=== PATIENT | female | born 1960 | race Caucasian/White ===

== ENCOUNTER → 2018-02-04 12:20 | Outpatient (CLI) | payer OTHER, SELFPAY ==
--- NOTE | 2018-02-04 | DI.US.S_ITS ---
PROCEDURE: US ABD AORTA ANEURYSM SCREEN INDICATIONS: SCREENING HYPERTENSION TECHNIQUE: Real time scanning was performed of the aorta and iliac arteries, with image documentation. COMPARISON: [facility], CT, ABDOMEN/PELVIS WITH CONTRAST, 03/10/2011, 15:11. [facility], US, ABDOMEN COMPLETE, 11/09/2007, 7:27. [facility], US, US ARTERIAL DUPLEX LE RT, 02/04/2018, 13:16. FINDINGS: Aorta: Proximal aortic diameter measures 2.3 cm. Mid-aorta measures 1.4 cm. Distal aortic diameter is 1.1 cm. Iliac arteries: Right common iliac artery measures 0.9 cm. Left common iliac artery measures 0.8 cm. IMPRESSION: No abdominal aortic aneurysm is seen. Dictated by: Eliseo España M.D. on 02/04/2018 at 14:54 Approved by: Eliseo España M.D. on 02/04/2018 at 14:55
--- NOTE | 2018-02-04 | DI.US.S_ITS ---
PROCEDURE: US ARTERIAL DUPLEX LE RT INDICATIONS: SCREENING HYPERTENSION TECHNIQUE: Color and pulse Doppler interrogation was performed of the right lower extremity arterial system, with image documentation. COMPARISON: [facility], US, US ABD AORTA ANEURYSM SCREEN, 02/04/2018, 13:09. FINDINGS: Common femoral artery: 120 cm/sec, with triphasic flow. Deep femoral artery: 78 cm/sec, with biphasic flow. Proximal superficial femoral artery: 121 cm/sec, with biphasic flow. Mid superficial femoral artery: 118 cm/sec, with biphasic flow. Distal superficial femoral artery: 88 cm/sec, with biphasic flow. Popliteal artery: 80 cm/sec, with biphasic flow. Posterior tibial artery: 76 cm/sec, with biphasic flow. Anterior tibial artery/dorsalis pedis: 119 cm/sec, with biphasic flow. Daniels-scale imaging description: Scattered foci of atherosclerotic plaque can be seen. IMPRESSION: No hemodynamically significant stenosis can be seen. Dictated by: Eliseo España M.D. on 02/04/2018 at 14:55 Approved by: Eliseo España M.D. on 02/04/2018 at 14:56
== END ==
PROVIDERS: Family Provider Family Medicine; PCP Family Medicine; Visit Provider Family Medicine
DX: Z13.6 Encounter for screening for cardiovascular disorders (principal)
CPT/HCPCS: 76706; 93926

== ENCOUNTER → 2018-07-29 10:36 | Outpatient (CLI) | payer OTHER, SELFPAY ==
--- NOTE | 2018-07-29 | DI.CT.S_ITS ---
PROCEDURE: CT LUMBAR SPINE WO CON INDICATIONS: SPINAL STENOSIS TECHNIQUE: Noncontrast 3 mm thick sections acquired from the T12 level to the sacrum. Sagittal and coronal reformats were constructed. For radiation dose reduction, the following was used: automated exposure control. In this patient, 3-D reformatted images were also performed. COMPARISON: [facility], MR, L-SPINE WITHOUT CONTRAST, 06/10/2016, 16:23. [facility], CR, L-SPINE 2-3 VIEWS, 08/07/2016, 14:07. [facility], US, US ABD AORTA ANEURYSM SCREEN, 02/04/2018, 13:09. FINDINGS: Image quality: Excellent. Bones: There is normal bony alignment. No acute vertebral body compression fractures. No suspicious lytic or blastic bony lesions. Central spinal caliber is of normal overall caliber. No pars defects. Postoperative change is seen, with bilateral pedicle screws at the L4, L5, and S1 levels. The screws appear well placed. Vertical fixation rods are seen. Disc spacers are seen at L4-L5 and L5-S1. No findings of hardware failure or hardware loosening are seen. There has been removal of portions of the posterior elements. There is streak artifact associated with the metallic hardware. T11-T12: Moderate loss of disc height is seen. Vacuum disc phenomenon is seen at this level. No significant neural foraminal or central canal narrowing can be seen. T12-L1: No significant abnormality is seen. L1-L2: The disc height is relatively well-preserved. Mild generalized disc bulge is seen. No significant neural foraminal or central canal narrowing can be seen. On the 2016 MRI, there was a left-sided disc protrusion described at this level, which is not definitely seen on the current study. L2-L3: Moderate loss of disc height is seen. Endplate irregularity and sclerosis can be seen including posteriorly directed endplate osteophytes. There is calcification/ossification seen involving the annulus fibrosis posteriorly, as on series 5 image 32. At least moderate disc bulge is seen. There is moderate neural foraminal narrowing, left greater than right. At least moderate central canal narrowing is seen. These degenerative changes are progressed compared to 2016. L3-L4: The disc height is relatively well-preserved. Moderate disc bulge is seen, which is eccentric to the right. [id number] bilateral neural foraminal narrowing is seen. Moderate central canal narrowing is seen. These degenerative changes have progressed compared to the prior MRI from 2016. L4-L5: Postoperative changes are seen at this level. Mild to moderate disc bulge is seen. No significant neural foraminal or central canal narrowing can be seen. This level is improved compared to the prior 2016 MRI. L5-S1: There are postoperative changes at this level. Moderate loss of disc height can be seen. Moderate disc osteophyte complex is seen, with a central disc osteophyte protrusion, as on series 3 image 69. Posteriorly directed endplate osteophytes are seen at this level. There is moderate bilateral neural foraminal narrowing seen, left worse than right. Moderate to severe central canal narrowing is seen at this level. The degree of central canal narrowing is believed to be similar to the prior MRI. Soft tissues: No retroperitoneal masses or hematomas. Visualized aorta is normal in caliber. Atherosclerotic calcification is noted, including involving the renal arteries. IMPRESSION: Postoperative change from L4-S1, without dinora complication seen. Improvement compared to the prior MRI at the L1-L2 and L4-L5 levels compared to 2016. Progression of degenerative change compared to 2016 at the L2-L3 and L3-L4 levels. Dictated by: Eliseo España M.D. on 07/29/2018 at 10:51 Approved by: Eliseo España M.D. on 07/29/2018 at 11:02
== END ==
PROVIDERS: Family Provider Family Medicine; PCP Family Medicine; Visit Provider Orthopaedic Surgery Orthopaedic Surgery of the Spine
DX: M48.062 Spinal stenosis, lumbar region with neurogenic claudication (principal); M47.816 Spondylosis without myelopathy or radiculopathy, lumbar region
CPT/HCPCS: 72131

== ENCOUNTER → 2019-03-29 09:49 | Outpatient (CLI) | payer OTHER, SELFPAY ==
--- NOTE | 2019-03-29 | DI.RAD.S_ITS ---
PROCEDURE: XR SHOULDER LT MIN 2V INDICATIONS: PAIN TECHNIQUE: 3 views of the shoulder were acquired. COMPARISON: None. FINDINGS: Bones: No fractures or dislocations. No suspicious bony lesions. Visualized ribs appear intact. Moderate AC joint degeneration. Glenohumeral degenerative spurring and sclerosis. Soft tissues: Small focus of calcific tendinitis IMPRESSION: Left shoulder joint degeneration Calcific tendinitis. Dictated by: Phani Ocasio M.D. on 03/29/2019 at 10:34 Approved by: Phani Ocasio M.D. on 03/29/2019 at 10:35
--- NOTE | 2019-03-29 10:06 | DI.CT.S_ITS ---
PROCEDURE: CT LUMBAR SPINE WO CON INDICATIONS: Low back pain TECHNIQUE: Noncontrast 3 mm thick sections acquired from the T12 level to the sacrum. Sagittal and coronal reformats were constructed. In this patient, 3-D reformatted images were also performed. For radiation dose reduction, the following was used: automated exposure control. COMPARISON: [facility], MR, L-SPINE WITHOUT CONTRAST, 06/10/2016, 16:23. [facility], MR, L-SPINE WITHOUT CONTRAST, 06/20/2014, 13:15. [facility], MR, L-SPINE WITHOUT CONTRAST, 02/21/2013, 17:38. [facility], CT, CT LUMBAR SPINE WO CON, 07/29/2018, 10:57. FINDINGS: Image quality: Excellent. Bones: No acute vertebral body compression fractures. No suspicious lytic or blastic bony lesions. Central spinal caliber is of normal overall caliber. No pars defects. Postoperative changes are seen, with bilateral pedicle screws at the L4, L5, and S1 levels. The screws appear well placed. Vertical fixation rods are seen. Disc spacers are seen at L4-L5 and L5-S1. No findings of hardware failure or hardware loosening are seen. There has been removal of portions of the posterior elements. T12-L1: No significant abnormality can be seen. L1-L2: No significant loss of disc height is seen. Mild generalized disc bulge is seen. Mild bilateral neural foraminal narrowing is seen. Mild central canal narrowing is seen. When comparison is made with the prior examination, these findings are similar. L2-L3: Minimal retrolisthesis is seen at this level. Moderate loss of disc height is seen. At least moderate disc bulge is seen. There is a central disc protrusion seen. Calcification can be seen along the posterior aspect of the central disc protrusion. At least moderate bilateral neural foraminal narrowing can be seen, left worse than right. At least moderate central canal narrowing is seen. When comparison is made with the prior examination, these findings are similar. L3-L4: Minimal retrolisthesis is seen at this level. The disc height is relatively well preserved. Moderate disc bulge is seen. Calcification can be seen along the posterior aspect of the disc. Mild bilateral neural foraminal narrowing is seen. Moderate central canal narrowing is seen. When comparison is made with the prior examination, these findings are similar. L4-L5: Postoperative changes are seen at this level. Mild retrolisthesis is seen at L4-L5. No significant neural foraminal or central canal narrowing can be seen. Stable from the prior study. L5-S1: There are postoperative changes seen at this level. Mild retrolisthesis is seen. Endplate irregularity is seen, with endplate osteophyte formation. Posteriorly projected endplate osteophytes are seen. Moderate bilateral neural foraminal narrowing is seen. At least moderate central canal narrowing is seen. Stable from the prior study. Soft tissues: No retroperitoneal masses or hematomas. Visualized aorta is normal in caliber. Atherosclerotic calcification is noted. There is a partially seen water density cyst along the posterior aspect of the right kidney that measures 2.5 cm. IMPRESSION: Unremarkable lumbosacral postoperative change. Multiple levels of degenerative change are seen, which are stable compared to the prior CT examination. Dictated by: Eliseo España M.D. on 03/29/2019 at 9:50 Approved by: Eliseo España M.D. on 03/29/2019 at 9:58
== END ==
PROVIDERS: PCP Family Medicine; Visit Provider Family Medicine
DX: M54.5 Low back pain (principal); M47.816 Spondylosis without myelopathy or radiculopathy, lumbar region; M25.512 Pain in left shoulder; M19.012 Primary osteoarthritis, left shoulder; M75.32 Calcific tendinitis of left shoulder
CPT/HCPCS: 72131; 73030

== ENCOUNTER → 2020-02-08 10:22 | Outpatient (CLI) | payer OTHER, SELFPAY ==
--- NOTE | 2020-02-08 | DI.US.S_ITS ---
PROCEDURE: US PELVIC COMPLETE INDICATIONS: INTRA-ABDOMINAL SWELLING / MASS LUMP ABDOMEN/PELVIS TECHNIQUE: Real-time scanning was performed of the pelvic organs, with image documentation. Additional endovaginal scanning was necessary due to incomplete visualization of the adnexal and endometrial structures by transabdominal scanning. COMPARISON: [facility], CT, CT LUMBAR SPINE WO CON, 03/29/2019, 9:57. [facility], , PELVIC COMPLETE, 12/02/2015, 11:16. [facility], US, PELVIC COMPLETE, 05/06/2016, 13:11. [facility], US, US ABDOMEN LIMITED, 02/08/2020, 11:12. [facility], PELVIC COMPLETE, 03/17/2017, 10:56. FINDINGS: Transabdominal scanning: Limited scanning through the kidneys shows no hydronephrosis. No pathologic free abdominal or pelvic fluid. Endovaginal scanning: Uterus: Uterus is normal in size at 8.9 x 4.4 x 4.5 cm. The endometrium measures 9 mm in combined thickness. Incidental note is made of nabothian cysts. Ovaries: The right ovary is not seen. The left ovary measures 2.5 x 1.5 x 2.1 cm and demonstrates no significant abnormality. No adnexal masses can be seen on either side. IMPRESSION: The endometrial stripe is thickened in this postmenopausal patient. Differential diagnosis includes endometrial neoplasm and endometrial hyperplasia. Recommend correlation with endometrial histology, if clinically appropriate. The previously seen IUD has been removed. Dictated by: Eliseo España M.D. on 02/08/2020 at 11:29 Approved by: Elieso España M.D. on 02/08/2020 at 11:31
--- NOTE | 2020-02-08 | DI.US.S_ITS ---
PROCEDURE: US ABDOMEN LIMITED INDICATIONS: INTRA-ABDOMINAL SWELLING / MASS LUMP ABDOMEN/PELVIS TECHNIQUE: Real-time focused scanning was performed of the abdomen, with image documentation. COMPARISON: [facility], CT, CT LUMBAR SPINE WO CON, 03/29/2019, 9:57. [facility], US, US PELVIC COMPLETE, 02/08/2020, 10:43. [facility], US, ABDOMEN COMPLETE, 05/29/2015, 10:09. FINDINGS: Scanning is performed at the area of clinical concern just superior and on the left lateral from the umbilicus. Within the subcutaneous soft tissues, there is a heterogeneous nonvascular nodule that measures 1 x 0.7 x 0.7 cm. IMPRESSION: 1 cm heterogeneous nonvascular nodule seen at a site of diabetic medication injection. Differential diagnosis includes a hematoma, granuloma and early phlegmon. Please consider follow-up ultrasound in 4-6 weeks, if this area does not improve clinically. Dictated by: Eliseo España M.D. on 02/08/2020 at 11:31 Approved by: Eliseo España M.D. on 02/08/2020 at 11:33
== END ==
PROVIDERS: PCP Family Medicine; Referring Provider Family Medicine; Visit Provider Family Medicine
DX: R19.00 Intra-abdominal and pelvic swelling, mass and lump, unspecified site (principal); N88.8 Other specified noninflammatory disorders of cervix uteri; R93.89 Abnormal findings on diagnostic imaging of other specified body structures
CPT/HCPCS: 76705; 76830; 76856

== ENCOUNTER → 2020-10-25 10:34 | Outpatient (CLI) | payer OTHER, SELFPAY ==
--- NOTE | 2020-10-25 | DI.RAD.S_ITS ---
PROCEDURE: XR FOOT LT MIN 3V INDICATIONS: LEFT FOOT PAIN TECHNIQUE: 3 views of the foot were acquired. COMPARISON: [facility], , FOOT 3V LEFT, 02/22/2015, 16:22. [facility], , FOOT 3V LEFT, 07/20/2012, 15:07. FINDINGS: Bones: No fractures or dislocations. No suspicious bony lesions. Soft tissues: No tibiotalar joint effusion. Achilles tendon appears normal. IMPRESSION: No trauma found, source of left foot pain is not identified. Dictated by: Armani yL M.D. on 10/25/2020 at 12:44 Approved by: Armani Ly M.D. on 10/25/2020 at 12:44
== END ==
PROVIDERS: PCP Family Medicine; Referring Provider Family Medicine; Visit Provider Family Medicine
DX: M79.672 Pain in left foot (principal)
CPT/HCPCS: 73630

== ENCOUNTER → 2022-01-19 16:28 | Outpatient (CLI) | payer OTHER, SELFPAY ==
--- NOTE | 2022-01-19 | DI.RAD.S_ITS ---
PROCEDURE: XR ANKLE LT MIN 3V INDICATIONS: Lt Ankle Pain TECHNIQUE: 3 views of the ankle were acquired. COMPARISON: [facility], , ANKLE 3 VIEWS LEFT, 07/03/2014, 13:44. FINDINGS: Bones: No fractures or dislocations. Ankle mortise is normally aligned. No suspicious bony lesions. Retrocalcaneal plantar bone spurs. Soft tissues: No tibiotalar joint effusion. Achilles tendon appears normal. Vascular calcifications indicate atherosclerosis. IMPRESSION: No acute fracture. No osseous lesion. If clinical suspicion and or symptoms persist, further assessment with repeat plain films, or advanced imaging (CT, MRI, or bone scan) may be helpful for further assessment. Dictated by: Sonny Waldrop [facility] Interpreted: Faraz Douglas MD on 01/19/2022 at 16:57 Transcribed by: FRANCOIS on 01/19/2022 at 16:57 Approved by: Faraz Douglas M.D. on 01/19/2022 at 17:16
--- NOTE | 2022-01-19 | DI.RAD.S_ITS ---
PROCEDURE: XR KNEE RT 3V INDICATIONS: Rt Knee Pain TECHNIQUE: 3 views of the knee were acquired. COMPARISON: None. FINDINGS: Bones: No fractures or dislocations. No suspicious bony lesions. Mild tricompartmental knee joint space narrowing. Soft tissues: Small joint effusion. No suspicious soft tissue calcifications. Vascular calcifications indicate atherosclerosis. IMPRESSION: No acute fracture. No osseous lesion. If clinical suspicion and or symptoms persist, further assessment with repeat plain films, or advanced imaging (CT, MRI, or bone scan) may be helpful for further assessment. Dictated by: Sonny Waldrop [facility] Interpreted: Faraz Douglas MD on 01/19/2022 at 16:59 Transcribed by: FRANCOIS on 01/19/2022 at 17:00 Approved by: Faraz Douglas M.D. on 01/19/2022 at 17:16
== END ==
PROVIDERS: PCP Family Medicine; Referring Provider Family Medicine; Visit Provider Family Medicine
DX: M77.32 Calcaneal spur, left foot; M25.461 Effusion, right knee; M25.561 Pain in right knee; M25.572 Pain in left ankle and joints of left foot
CPT/HCPCS: 73562; 73610

== ENCOUNTER → 2024-02-01 | Outpatient (CLI) | payer OTHER, SELFPAY ==
--- NOTE | 2024-02-01 | DI.RAD.S_ITS ---
PROCEDURE: XR FOOT LT MIN 3V INDICATIONS: Pain in left foot TECHNIQUE: 3 views of the foot were acquired. COMPARISON: [facility], CR, FOOT 3V LEFT, 02/22/2015, 16:22. [facility], CR, XR FOOT LT MIN 3V, 10/25/2020, 10:44. FINDINGS: Bones: No fractures or dislocations. No suspicious bony lesions. Soft tissues: No tibiotalar joint effusion. Achilles tendon appears normal. Small plantar and Achilles calcaneal enthesophytes. Vascular calcifications. Soft tissue prominence along the lateral aspect of the 5th MTP joint, similar to prior dated October 25, 2020 and mildly more prominent compared to February 22, 2015. IMPRESSION: 1. No acute bony abnormality. If clinical symptoms persist, consider repeat radiograph in 10-14 days versus cross-sectional imaging. 2. Soft tissue prominence along the lateral aspect of the 5th MTP joint which appears similar to most recent prior dated October 25, 2020. Correlate for point tenderness. Dictated by: Jose Francisco Gutierrez M.D. on 02/15/2024 at 12:23 Approved by: Jose Francisco Gutierrez M.D. on 02/15/2024 at 12:27
== END ==
LOC: RAD 13:40
PROVIDERS: PCP Family Medicine; Referring Provider Family Medicine; Visit Provider Family Medicine
DX: M77.32 Calcaneal spur, left foot (principal); M79.672 Pain in left foot
CPT/HCPCS: 73630